=== PATIENT | male | born 1955 ===

== ENCOUNTER 2017-07-31 17:53 | Emergency (ER) | payer MEDICARE, MEDICAID ==
[2017-07-31 18:10] VITALS: BP 161/92; PULSE 87; RESP 20; TEMP 97.3; O2SAT 99
[2017-07-31] MEDS ORDERED: Sodium Chloride 0.9% 500 ML IV STA (18:27)
--- NOTE | 2017-07-31 18:54 | ED PDOC ---
HPI: Headache Time Seen by Provider: 07/31/17 18:14 Chief Complaint (Nursing): Headache Chief Complaint (Provider): Headache History Per: Patient History/Exam Limitations: no limitations Onset/Duration Of Symptoms: Days (x3) Current Symptoms Are (Timing): Still Present Additional Complaint(s): 61 year old male with previous medical history of hypertension, diabetes and hypercholesterolemia, who presents to the emergency department with a complaint of right-sided headache radiating to neck and shoulder associated with bilateral ear pain, imbalance and double vision in right eye ongoing for 3 days. Denied any nausea, vomiting, diarrhea, chest pain, abdominal pain, weakness, numbness, tingling sensation or cough. Patient stated he has ongoing leg numbness status post spinal surgery and has tried OTC pain medications with no relief. Gets headaches similar to this. No back pain. Had a craniotomy for a trauma related bleed. Not the worst headache of her life. Also has a cough, congestion, runny nose for 3-4 days. R eye double vision occurs frequently with headaches ongoing since surgery on bleed in the head. PMD: Shaik Koko PETE Past Medical History Reviewed: Historical Data, Nursing Documentation, Vital Signs Vital Signs: Last Vital Signs Temp 97.3 F L 07/31/17 18:06 Pulse 87 07/31/17 18:06 Resp 20 07/31/17 18:06 BP 161/92 H 07/31/17 18:06 Pulse Ox 99 07/31/17 18:06 - Medical History PMH: Arthritis, Diabetes, HTN, Hypercholesterolemia - Surgical History Surgical History: Back Surgery, Hernia Repair Other surgeries: craniotomy - Family History Family History: States: Unknown Family Hx - Social History Current smoker - smoking cessation education provided: Yes Alcohol: Occasional Drugs: Denies - Home Medications Home Medications: Ambulatory Orders Medication Instructions Recorded Aspirin 81 mg PO DAILY 04/22/14 Atorvastatin Calcium [Lipitor] 10 mg PO HS 04/22/14 Enalapril Maleate [Enalapril] 10 mg PO DAILY 04/22/14 Esomeprazole Magnesium [Nexium] 40 mg PO DAILY 04/22/14 Fenofibrate Nanocrystallized 48 mg PO DAILY 04/22/14 [Fenofibrate] Fluticasone/Salmeterol 250/50 1 puff IH BID 04/22/14 [Advair Diskus] Glimepiride 4 mg PO DAILY 04/22/14 Levocetirizine Dihydrochlori 5 mg PO DAILY 04/22/14 [Levocetirizine Dihydrochloride] Meclizine Hydrochloride [Meclizine 12.5 mg PO BID PRN 04/22/14 HCl] Meclizine Hydrochloride [Meclizine 12.5 mg PO BID PRN #20 tab 04/22/14 HCl] Mometasone Furoate [Nasonex] 0.05 mg NS DAILY 04/22/14 Montelukast [Singulair] 10 mg PO DAILY 04/22/14 Nebivolol Hydrochloride [Bystolic] 5 mg PO DAILY 04/22/14 Olopatadine 0.1% Opht [Patanol 5 1 drop OP BID 04/22/14 Ml] [id number] Ethyl Esters [Lovaza] 4,000 mg PO DAILY 04/22/14 Zolpidem Tartrate [Zolpidem] 10 mg PO DAILY 04/22/14 Ibuprofen 600 mg PO Q8H PRN #60 tab 12/10/15 Meclizine HCl [Antivert/25] 1 tab PO TID PRN #30 tab 12/10/15 Ondansetron [Zofran] 4 mg PO Q8H PRN #30 tab 12/10/15 Oseltamivir Phosphate [Tamiflu] 75 mg PO BID #10 capsule 12/10/15 LORazepam [Ativan] 1 mg PO Q8 #6 tab 04/24/16 traMADol [Ultram] 50 mg PO Q8 #10 tab 04/24/16 - Allergies Allergies/Adverse Reactions: Allergies Allergy/AdvReac Type Severity Reaction Status Date / Time No Known Allergies Allergy Verified 04/24/16 13:34 Review of Systems ROS Statement: Except As Marked, All Systems Reviewed And Found Negative Eyes: Positive for: Vision Change (right eye double vision) ENT: Positive for: Ear Pain (B/L) Cardiovascular: Negative for: Chest Pain Respiratory: Negative for: Cough Gastrointestinal: Negative for: Nausea, Vomiting, Abdominal Pain, Diarrhea Musculoskeletal: Positive for: Neck Pain (right-sided), Shoulder Pain (right- sided), Leg Pain (ongoing numbness) Neurological: Positive for: Numbness (legs chronically), Headache, Dizziness ( inbalance) Physical Exam - Reviewed Nursing Documentation Reviewed: Yes Vital Signs Reviewed: Yes - Physical Exam Appears: Positive for: Well, Non-toxic, No Acute Distress Head Exam: Positive for: ATRAUMATIC, NORMAL INSPECTION, NORMOCEPHALIC Skin: Positive for: Normal Color, Warm, DRY Eye Exam: Positive for: Normal appearance, EOMI, PERRL. Negative for: Nystagmus ENT: Positive for: Normal ENT Inspection, Pharynx Is (within normal limits). Negative for: Pharyngeal Erythema Neck: Positive for: Normal, Painless ROM, Supple. Negative for: Decreased ROM Cardiovascular/Chest: Positive for: Regular Rate, Rhythm, Chest Non Tender Respiratory: Positive for: Normal Breath Sounds. Negative for: Decreased Breath Sounds, Respiratory Distress Gastrointestinal/Abdominal: Positive for: Normal Exam, Bowel Sounds, Soft. Negative for: Tenderness Back: Positive for: Normal Inspection. Negative for: L CVA Tenderness, R CVA Tenderness Extremity: Positive for: Normal ROM (all extremities), Capillary Refill (<2 seconds). Negative for: Tenderness, Pedal Edema, Calf Tenderness Neurologic/Psych: Positive for: Alert (x3), irrigation laborer II-XII (intact), Oriented. Negative for: Motor/Sensory Deficits, Aphasia, Facial Droop - Laboratory Results Result Diagrams: 07/31/17 18:52 07/31/17 18:52 Interpretation Of Abn Labs: no acute - ECG ECG: Positive for: Interpreted By Me, Viewed By Nv ECG Rhythm: Positive for: Nonspecific Changes (similar to old) O2 Sat by Pulse Oximetry: 99 (RA) Pulse Ox Interpretation: Normal - CT Scan/US head Other Rad Studies (CT/US): Read By Radiologist Other Rad Interpretation: no acute - Progress ED Course And Treament: 2014: Stable. AAOx3. Ambulating with no issues. No dizziness or pain. Complaining that he wants to leave and cursing. Tolerated Po. Medical Decision Making Medical Decision Making: Initial Impression: Headache Initial Plan: * CT head without contrast * EKG * Alcohol serum * CMP * Troponin I * CBC * PTT * PT * NS 500ml IV per 100mls/hr * Reglan 10mg IV ~ Scribe Attestation: Documented by Cherrie Foster, acting as a scribe for Davide Cisneros MD. Provider Scribe Attestation: All medical record entries made by the Scribe were at my direction and personally dictated by me. I have reviewed the chart and agree that the record accurately reflects my personal performance of the history, physical exam, medical decision making, and the department course for this patient. I have also personally directed, reviewed, and agree with the discharge instructions and disposition. Disposition - Clinical Impression Clinical Impression: Headache, Dizziness - Patient ED Disposition Is Patient to be Admitted: No Counseled Patient/Family Regarding: Studies Performed, Diagnosis, Need For Followup - Disposition Referrals: [facility] [Outside] - 08/02/17 Disposition: Routine/Home Disposition Time: 20:14 Condition: STABLE Additional Instructions: Return if not better in 3 days. Instructions: Acute Headache (ED), Dizziness (ED)
--- NOTE | 2017-07-31 19:02 | CT ---
PROCEDURE: CT HEAD WITHOUT CONTRAST. HISTORY: headache COMPARISON: Noncontrast head CT performed 04/24/16 TECHNIQUE: Axial computed tomography images were obtained through the head/brain without intravenous contrast. Radiation dose: Total exam DLP = 944.43 MGy-cm. This CT exam was performed using one or more of the following dose reduction techniques: Automated exposure control, adjustment of the mA and/or kV according to patient size, and/or use of iterative reconstruction technique. FINDINGS: HEMORRHAGE: No intracranial hemorrhage. BRAIN: No mass effect or edema. Bilateral basal ganglia calcifications. Intracranial atherosclerosis. Scattered periventricular and subcortical white matter hypodensities, which are nonspecific, but often seen with chronic microvascular ischemic disease. Please note that MRI with diffusion imaging is more sensitive in the detection of acute ischemic event. VENTRICLES: Ventricular prominence remains out of proportion to sulcal size and may be seen in the setting of NPH; correlate clinically. CALVARIUM: Status post right temporal craniotomy. PARANASAL SINUSES: Unremarkable as visualized. No significant inflammatory changes. MASTOID AIR CELLS: Unremarkable as visualized. No inflammatory changes. OTHER FINDINGS: None. IMPRESSION: Ventricular prominence remains out of proportion to sulcal size and may be seen in the setting of NPH; correlate clinically. Nonspecific white matter changes. Prior right temporal craniotomy.
[2017-07-31 19:07] LABS: ALB/GLOB RATIO 1.4 (1.0-2.1); ALBUMIN 4.3 g/dL (3.5-5.0); ALT/SGPT 47 U/L (21-72); AST/SGOT 23 U/L (17-59); BLOOD UREA NITROGEN 17 mg/dl (9-20); GFR AFRICAN-AMERICAN > 60; GFR NON-AFRICAN AMERICAN > 60
[2017-07-31 19:08] LABS: BASO # 0.1 K/uL (0.0-0.2); BASO % 1.3 % (0.0-2.0); EOS # 0.1 K/uL (0.0-0.7); EOS % 2.2 % (0.0-4.0); HEMOGLOBIN 13.7 g/dL (12.0-18.0); LYMPH # 1.8 K/uL (1.0-4.3); LYMPH % 30.8 % (20.0-40.0); MEAN CELL VOLUME 87.9 fl (80.0-94.0); MEAN CORPUSCULAR HEMOGLOBIN 29.2 pg (27.0-31.0); MEAN CORPUSCULAR HGB CONC 33.2 g/dL (33.0-37.0); MEAN PLATELET VOLUME 8.5 fl (7.2-11.7); MONO # 0.6 K/uL (0.0-0.8); MONO % 9.6 % (0.0-10.0); NEUT # 3.3 K/uL (1.8-7.0); NEUT % 56.1 % (50.0-75.0); RBC 4.68 Mil/uL (4.40-5.90); RED CELL DISTRIBUTION WIDTH 13.9 % (11.5-14.5)
[2017-07-31 19:26] LABS: PARTIAL THROMBOPLASTIN TIME 30.5 Seconds (25.6-37.1); PROTHROMBIN TIME 11.4 Seconds (9.8-13.1)
--- NOTE | 2017-08-01 10:34 | CARD ---
APPROVED REPORT EKG Measurement Heart [id number] <Conclusion> Normal sinus rhythm Cannot rule out Inferior infarct, age undetermined Abnormal ECG
== END 2017-07-31 20:30 | disposition home or self-care (01) ==
LOC: H.ER 17:53
DX: R51 Headache (principal); R42 Dizziness and giddiness; E11.9 Type 2 diabetes mellitus without complications; E78.00 Pure hypercholesterolemia, unspecified; H53.2 Diplopia; I10 Essential (primary) hypertension; Z79.82 Long term (current) use of aspirin
CPT/HCPCS: 70450; 80053; 84484; 85025; 85610; 85730; 93005; 96374; 99284; G0480; J2765; J7040

== ENCOUNTER 2018-12-09 07:56 | Emergency (ER) | payer MEDICARE, MEDICAID ==
[2018-12-09 08:06] VITALS: BMI 31.1
--- NOTE | 2018-12-09 08:32 | ED PDOC ---
HPI: Abdomen Time Seen by Provider: 12/09/18 08:09 Chief Complaint (Nursing): GI Problem Additional Complaint(s): 63 y/o M with a PMHx of HTN, DM, HLD presents to ED complaining of diarrhea that began 4 days ago. Pt reports having a watery bowel movement every 20 minutes, is non-bloody and non-mucous, started 4 days ago, stopped yesterday and re-started this morning. Pt complains of nausea and vomiting, unable to tolerate solid foods, and drinks only Gatorade and Jello. Vomiting is clear, non-blooding and non-bilious. Pt also c/o epigastric pain, radiates to RUQ, intermittent, 1-2/10 intensity. No ill contacts. No recent travel. Pt is an active smoker. Pt denies fever, chills, chest pain, SOB, dizziness or rash. PMD: Dr Sutherland. NKDA PMHx: HTN, DM, HLD PSHx: Craniotomy for hematoma evacuation, L inguinal hernia repair. FHx: Extensive Hx of DM2 in family. SHx: Pt smokes 1-2 ppd for > 35 years.Alcohol every weekend, beers and hard liquor. NO rec drugs. Past Medical History Vital Signs: Last Vital Signs Temp 97 F L 12/09/18 08:05 Pulse 100 H 12/09/18 08:05 Resp 18 12/09/18 08:05 BP 141/81 12/09/18 08:05 Pulse Ox 98 12/09/18 08:05 Primary Care Provider: FAMILY PROVIDER,NO - Medical History PMH: Arthritis, Diabetes, HTN, Hypercholesterolemia - Surgical History Surgical History: Back Surgery, Hernia Repair - Family History Family History: States: Unknown Family Hx - Immunization History Hx Tetanus Toxoid Vaccination: No Hx Influenza Vaccination: No Hx Pneumococcal Vaccination: No - Home Medications Home Medications: Ambulatory Orders Medication Instructions Recorded Aspirin 81 mg PO DAILY 04/22/14 Atorvastatin Calcium [Lipitor] 10 mg PO HS 04/22/14 Enalapril Maleate [Enalapril] 10 mg PO DAILY 04/22/14 Esomeprazole Magnesium [Nexium] 40 mg PO DAILY 04/22/14 Fenofibrate Nanocrystallized 48 mg PO DAILY 04/22/14 [Fenofibrate] Fluticasone/Salmeterol 250/50 1 puff IH BID 04/22/14 [Advair Diskus] Glimepiride 4 mg PO DAILY 04/22/14 Levocetirizine Dihydrochlori 5 mg PO DAILY 04/22/14 [Levocetirizine Dihydrochloride] Meclizine Hydrochloride [Meclizine 12.5 mg PO BID PRN 04/22/14 HCl] Meclizine Hydrochloride [Meclizine 12.5 mg PO BID PRN #20 tab 04/22/14 HCl] Mometasone Furoate [Nasonex] 0.05 mg NS DAILY 04/22/14 Montelukast [Singulair] 10 mg PO DAILY 04/22/14 Nebivolol Hydrochloride [Bystolic] 5 mg PO DAILY 04/22/14 Olopatadine 0.1% Opht [Patanol 5 1 drop OP BID 04/22/14 Ml] [id number] Ethyl Esters [Lovaza] 4,000 mg PO DAILY 04/22/14 Zolpidem Tartrate [Zolpidem] 10 mg PO DAILY 04/22/14 Ibuprofen 600 mg PO Q8H PRN #60 tab 12/10/15 Meclizine HCl [Antivert/25] 1 tab PO TID PRN #30 tab 12/10/15 Ondansetron [Zofran] 4 mg PO Q8H PRN #30 tab 12/10/15 Oseltamivir Phosphate [Tamiflu] 75 mg PO BID #10 capsule 12/10/15 LORazepam [Ativan] 1 mg PO Q8 #6 tab 04/24/16 traMADol [Ultram] 50 mg PO Q8 #10 tab 04/24/16 - Allergies Allergies/Adverse Reactions: Allergies Allergy/AdvReac Type Severity Reaction Status Date / Time No Known Allergies Allergy Verified 04/24/16 13:34 Review of Systems Constitutional: Negative for: Fever, Chills, Sweats Eyes: Negative for: Pain ENT: Negative for: Ear Pain Cardiovascular: Negative for: Chest Pain, Palpitations Respiratory: Negative for: Cough, Shortness of Breath Gastrointestinal: Positive for: Nausea, Vomiting, Abdominal Pain, Diarrhea. Negative for: Constipation, Hematochezia Genitourinary Male: Negative for: Dysuria, Frequency, Hematuria Musculoskeletal: Negative for: Neck Pain, Shoulder Pain, Back Pain Skin: Negative for: Rash Neurological: Negative for: Weakness, Numbness, Incoordination Physical Exam - Physical Exam Appears: Positive for: No Acute Distress Head Exam: Positive for: ATRAUMATIC, NORMAL INSPECTION Eye Exam: Positive for: Normal appearance, EOMI ENT: Negative for: Nasal Congestion, Pharyngeal Erythema, Tonsillar Exudate Neck: Positive for: Normal, Painless ROM, Supple Cardiovascular/Chest: Positive for: Regular Rate, Rhythm Respiratory: Positive for: Normal Breath Sounds Gastrointestinal/Abdominal: Positive for: Bowel Sounds (present), Soft. Negative for: Tenderness, Organomegaly, Distended, Guarding, Rebound Back: Negative for: L CVA Tenderness, R CVA Tenderness Extremity: Positive for: Normal ROM. Negative for: Tenderness, Calf Tenderness Neurological/Psych: Positive for: Awake, Alert - Laboratory Results Result Diagrams: 12/09/18 08:55 12/09/18 08:55 - ECG O2 Sat by Pulse Oximetry: 98 Medical Decision Making Medical Decision Making: At 08:50 --CBC, CMP, lipase, stool studies ordered --CT Abdomen/pelvis ordered. --IV normal saline bolus --IV Famotidine ordered. At 10:45 --Bloodwork reviewed --CT Abd/pelvis pending At 11:20 --Pt requesting to leave with medication for diarrhea only. --Pt was extensively counseled on the possibility of gastric obstruction since NO solid food is being tolerated. Pt reports understanding that CT is primordial for diagnosis. At 11:35 --Pt took his IV line out by himself, stated he will not wait for more testing or treatment. --Pt walked out of ED before treatment was established. Disposition - Clinical Impression Clinical Impression: Vomiting and diarrhea - Patient ED Disposition Is Patient to be Admitted: No Counseled Patient/Family Regarding: Studies Performed, Diagnosis, Need For Followup - Disposition Disposition: Left W/O Treatment Disposition Time: 11:40 Condition: IMPROVED Forms: [employer] (Polish)
[2018-12-09] MEDS ORDERED: Sodium Chloride 0.9% 1,000 ML IV SCH (08:45)
[2018-12-09 09:02] LABS: BASO % 0.8 % (0.0-2.0); EOS # 0.1 K/uL (0.0-0.7); EOS % 1.5 % (0.0-4.0); HEMOGLOBIN 16.2 g/dL (12.0-18.0); LYMPH # 1.2 K/uL (1.0-4.3); LYMPH % 30.2 % (20.0-40.0); MEAN CELL VOLUME 85.6 fl (80.0-94.0); MEAN CORPUSCULAR HEMOGLOBIN 29.3 pg (27.0-31.0); MEAN CORPUSCULAR HGB CONC 34.2 g/dL (33.0-37.0); MEAN PLATELET VOLUME 7.9 fl (7.2-11.7); MONO # 0.7 K/uL (0.0-0.8); MONO % 17.2 % (0.0-10.0); NEUT % 50.3 % (50.0-75.0); NRBC % 0.1 % (0.0-0.0); RBC 5.51 Mil/uL (4.40-5.90); WHITE BLOOD COUNT 4.1 K/uL (4.8-10.8)
[2018-12-09 09:13] LABS: ALB/GLOB RATIO 1.4 (1.0-2.1); ALBUMIN 4.4 g/dL (3.5-5.0); ALT/SGPT 51 U/L (21-72); AST/SGOT 39 U/L (17-59); BLOOD UREA NITROGEN 17 mg/dl (9-20); CALCIUM 8.5 mg/dL (8.4-10.2); GFR NON-AFRICAN AMERICAN > 60; LIPASE 41 U/L (23-300)
[2018-12-09 09:51] LABS: INR 1.1
[2018-12-09 09:53] LABS: PARTIAL THROMBOPLASTIN TIME 30.5 Seconds (25.6-37.1)
[2018-12-09 10:09] VITALS: BP 136/77; PULSE 92; RESP 16; TEMP 97.3
[2018-12-09 11:48] VITALS: O2SAT 98
--- NOTE | 2018-12-09 12:49 | CARD ---
APPROVED REPORT Date of service: 12/09/2018 EKG Measurement Heart [id number] <Conclusion> Sinus rhythm with frequent premature ventricular complexes Inferior infarct, age undetermined Abnormal ECG
== END 2018-12-09 11:40 | disposition left against medical advice (07) ==
LOC: H.ER 07:56
DX: R19.7 Diarrhea, unspecified (principal); R11.10 Vomiting, unspecified; E11.9 Type 2 diabetes mellitus without complications; F17.210 Nicotine dependence, cigarettes, uncomplicated; I10 Essential (primary) hypertension; E78.00 Pure hypercholesterolemia, unspecified; Z79.82 Long term (current) use of aspirin
CPT/HCPCS: 80053; 83690; 84484; 85025; 85610; 85730; 87045; 87177; 87209; 87338; 89055; 93005; 96361; 96374; 99283; G0480; J7030